=== PATIENT | female | born 1940 | race Caucasian/White ===

== ENCOUNTER → 2016-12-16 | Outpatient (CLI) | payer MEDICARE ==
[~2016-12-16] VITALS: Ht 172.7 cm; Wt 237.0 kg
[~2016-12-16] MED LIST: ALPR0.5T PO; AMLO5TAB2 PO; ATOR20TA59 PO; CALC1TAB PO; CITA20TA9 PO; IBUP-1547 PO; LOSA50TA52 PO; METO50TA5 PO; OMEP20CA10 PO; OXYC1TAB8 PO; TBO-FILGRASTIM 480mcg/0.8ml INJECTION SQ ONE
[2016-12-16 11:50] VITALS: BP 129/52; PULSE 71; RESP 16; TEMP 96; O2SAT 95
[2016-12-16 11:51] VITALS: Ht 172.7 cm; Wt 237.0 kg
[2016-12-16 12:04] VITALS: PULSE 60
--- NOTE | 2016-12-16 12:09 | NUR ---
GRANIX PT HERE TO RECEIVE SCHEDULED GRANIX.
== END ==
LOC: INF.THER 11:00
PROVIDERS: ATTEND Internal Medicine Hematology & Oncology
DX: D70.9 Neutropenia, unspecified (principal)
CPT/HCPCS: 96372; J1447